=== PATIENT | female | born 1990 | race African-American/Black ===

== ENCOUNTER 2017-01-04 22:46 | Observation (INO) | payer OTHER ==
[~2017-01-04] VITALS: Ht 162.6 cm; Wt 102.5 kg
[2017-01-04] MEDS ORDERED: LACTATED RINGERS 1,000 ML IV SCH (23:07)
[2017-01-04] MEDS ORDERED: PREN-88 PO (23:11)
[2017-01-04] MEDS ORDERED: IRON-1 PO (23:12)
[2017-01-04 23:28] LABS: CLARITY URINE CLEAR (CLEAR); COLOR URINE YELLOW (YELLOW); GLUCOSE URINE NEGATIVE (NEGATIVE); KETONES URINE NEGATIVE (NEGATIVE); LEUKOCYTE ESTERASE URINE TRACE (NEGATIVE); NITRITE URINE NEGATIVE (NEGATIVE); OCCULT BLOOD URINE NEGATIVE (NEGATIVE); PH URINE 7.5 (4.5-8.0); PROTEIN URINE NEGATIVE (NEGATIVE); SPECIFIC GRAVITY URINE 1.023 (1.005-1.030)
== END 2017-01-05 00:35 | disposition home or self-care (01) ==
LOC: L&D 22:46
PROVIDERS: ADMIT Obstetrics & Gynecology; ATTEND Obstetrics & Gynecology
DX: Z34.90 Encounter for supervision of normal pregnancy, unspecified, unspecified trimester (principal); Z3A.00 Weeks of gestation of pregnancy not specified
CPT/HCPCS: 81001; 96360; 99281; G0378; J7120

== ENCOUNTER 2017-01-14 22:42 | Observation (INO) | payer OTHER ==
[~2017-01-14] VITALS: Ht 160 cm; Wt 104.3 kg
[~2017-01-14 22:42] MED LIST: IRON-1 PO; PREN-88 PO
[2017-01-14] MEDS: TERBUTALINE SULFATE 1MG/ML VIAL SUBCUT PRN (23:30)
[2017-01-14] MEDS ORDERED: LACTATED RINGERS 1,000 ML IV ONE (23:30)
[2017-01-15] MEDS: TERBUTALINE SULFATE 1MG/ML VIAL SUBCUT PRN (00:14)
[2017-01-15] MEDS ORDERED: DEXT 5%/LR + PITOCIN 20UNITS/L 1,000 ML IV SCH (00:31)
[2017-01-15 00:33] LABS: *AMPHETAMINES SCREEN URINE NEGATIVE (NEGATIVE); *BARBITURATES SCREEN URINE NEGATIVE (NEGATIVE); *BENZODIAZEPINES SCREEN URINE NEGATIVE (NEGATIVE); *COCAINE SCREEN URINE NEGATIVE (NEGATIVE); CANNABINOID URINE SCREEN NEGATIVE (NEGATIVE); METHADONE URINE SCREEN NEGATIVE (NEGATIVE); OPIATES URINE SCREEN NEGATIVE (NEGATIVE); PHENCYCLIDINE URINE SCREEN NEGATIVE (NEGATIVE)
[2017-01-15 00:43] LABS: CLARITY URINE CLEAR (CLEAR); COLOR URINE YELLOW (YELLOW); GLUCOSE URINE NEGATIVE (NEGATIVE); KETONES URINE NEGATIVE (NEGATIVE); LEUKOCYTE ESTERASE URINE NEGATIVE (NEGATIVE); NITRITE URINE NEGATIVE (NEGATIVE); OCCULT BLOOD URINE NEGATIVE (NEGATIVE); PROTEIN URINE NEGATIVE (NEGATIVE); SPECIFIC GRAVITY URINE 1.016 (1.005-1.030)
[2017-01-15] MEDS ORDERED: MAGNESIUM 20 G PREMIX (L & D) 500 ML IV SCH (00:45)
[2017-01-15] MEDS ORDERED: METHYLERGONOVINE MALEATE 0.2 MG/ML IM PRN (00:45)
[2017-01-15] MEDS ORDERED: NALOXONE HCL 0.4 MG/ML 1ML VIAL IM PRN (00:45)
[2017-01-15] MEDS ORDERED: CARBOPROST TROMETHAMINE 250 MCG/ML AMPUL IM PRN (00:45)
[2017-01-15] MEDS ORDERED: MAGNESIUM 4 G PREMIX 100 ML IV ONE (00:45)
[2017-01-15 01:21] LABS: BASOPHILS % 0.5 % (0.0-2.0); EOSINOPHILS % 1.9 % (0.0-5.0); HEMOGLOBIN. 11.5 g/dL (12.0-16.0); LYMPHOCYTES % 22.9 % (20.0-50.0); MEAN CORPUSCULAR HEMOGLOBIN 30.5 pg (28.0-32.0); MEAN CORPUSCULAR VOLUME 92.7 fL (81.0-99.0); MONOCYTES % 8.3 % (2.0-8.0); NEUTROPHILS % 66.4 % (40.0-76.0); PLATELET 130 x1000/uL (130-400); RED BLOOD CELL COUNT 3.78 mill/uL (4.2-5.4); RED CELL DISTRIBUTION WIDTH 12.9 % (11.6-14.6)
[2017-01-15 01:31] LABS: PARTIAL THROMBOPLASTIN TIME 26.9 sec (24.0-34.0); PROTHROMBIN TIME 9.9 sec
[2017-01-15] MEDS ORDERED: LACTATED RINGERS 1,000 ML IV SCH (01:45)
[2017-01-15] MEDS ORDERED: FENTANYL CITRATE/PF 50MCG/ML 2ML VIAL ONE (05:34)
[2017-01-15] MEDS ORDERED: BUPIVACAINE HCL/PF 0.25% (2.5MG/ML) 10ML ONE (05:34)
[2017-01-15] MEDS ORDERED: BUPIVACAINE HCL/NS/PF EPIDURAL 100 ML EP ONE (05:34)
[2017-01-15] MEDS ORDERED: BUPIVACAINE HCL/NS/PF EPIDURAL 100 ML EP SCH (05:45)
[2017-01-15] MEDS ORDERED: BUTORPHANOL TARTRATE 2 MG/ML VIAL IV PRN (05:58)
[2017-01-15 06:11] VITALS: BP 120/78
[2017-01-15] MEDS ORDERED: TERBUTALINE SULFATE 1MG/ML VIAL SUBCUT NR (08:30)
[2017-01-15 12:41] LABS: RUBELLA IGG 11.4 IU/mL (4.99-10)
[2017-01-15 12:42] LABS: HEPATITIS B SURFACE ANTIGEN NEGATIVE
== END 2017-01-15 09:30 | disposition left against medical advice (07) ==
LOC: L&D 22:42
PROVIDERS: ADMIT Obstetrics & Gynecology; ATTEND Obstetrics & Gynecology
DX: O26.893 Other specified pregnancy related conditions, third trimester (principal); R10.9 Unspecified abdominal pain; Z3A.36 36 weeks gestation of pregnancy
CPT/HCPCS: 36415; 80305; 81003; 85025; 85610; 85730; 86592; 86703; 86762; 86850; 86900; 86901; 87340; 96361; 96365; 96366; 96372; 96373; 96375; G0378; J0595; J3010; J3105; J3475; J3490; J7120; 59412; 96360

== ENCOUNTER 2022-04-30 04:37 | Observation (INO) | payer MEDICAID, OTHER ==
[~2022-04-30] VITALS: Ht 160 cm; Wt 83.9 kg
[2022-04-30] MEDS ORDERED: PNV1TABL29 PO (05:51)
[2022-04-30 06:45] LABS: CLARITY URINE CLOUDY (CLEAR); COLOR URINE YELLOW (YELLOW); KETONES URINE NEGATIVE (NEGATIVE); LEUKOCYTE ESTERASE URINE 2+ (NEGATIVE); NITRITE URINE NEGATIVE (NEGATIVE); OCCULT BLOOD URINE NEGATIVE (NEGATIVE); PH URINE 6.5 (4.5-8.0); PROTEIN URINE NEGATIVE (NEGATIVE); SPECIFIC GRAVITY URINE 1.015 (1.005-1.030); UROBILINOGEN URINE 0.2 E.U./dL (0.2-1.0)
== END 2022-04-30 08:25 | disposition home or self-care (01) ==
LOC: 8 EST LDRP 04:37
PROVIDERS: ADMIT Obstetrics & Gynecology; ATTEND Obstetrics & Gynecology
DX: O26.892 Other specified pregnancy related conditions, second trimester (principal); R10.9 Unspecified abdominal pain; O62.9 Abnormality of forces of labor, unspecified; Z3A.22 22 weeks gestation of pregnancy
CPT/HCPCS: 59025; 76805; 81003; G0378; 99281

== ENCOUNTER 2022-06-21 20:28 | Observation (INO) | payer MEDICAID, OTHER ==
[~2022-06-21] VITALS: Ht 162.6 cm; Wt 92.5 kg
[~2022-06-21 20:28] MED LIST changes: +PNV1TABL29 PO
[2022-06-21] MEDS ORDERED: LACTATED RINGERS 1,000 ML IV ONE (21:30)
[2022-06-21] MEDS ORDERED: LACTATED RINGERS 1,000 ML IV SCH (21:30)
[2022-06-21] MEDS ORDERED: DEXT 5%/LACTATED RINGERS 1,000 ML IV ONE (22:00)
[2022-06-21 22:44] LABS: CLARITY URINE CLEAR (CLEAR); COLOR URINE YELLOW (YELLOW); KETONES URINE NEGATIVE (NEGATIVE); LEUKOCYTE ESTERASE URINE TRACE (NEGATIVE); NITRITE URINE NEGATIVE (NEGATIVE); OCCULT BLOOD URINE NEGATIVE (NEGATIVE); PH URINE 6.5 (4.5-8.0); PROTEIN URINE NEGATIVE (NEGATIVE); SPECIFIC GRAVITY URINE 1.014 (1.005-1.030); UROBILINOGEN URINE 0.2 E.U./dL (0.2-1.0)
[2022-06-21] MEDS ORDERED: ACETAMINOPHEN 325MG TABLET PO NR (23:18)
== END 2022-06-21 23:59 | disposition home or self-care (01) ==
LOC: 8 EST LDRP 20:28
PROVIDERS: ADMIT Obstetrics & Gynecology; ATTEND Obstetrics & Gynecology
DX: O99.891 Other specified diseases and conditions complicating pregnancy (principal); M54.9 Dorsalgia, unspecified; R10.30 Lower abdominal pain, unspecified; Z3A.29 29 weeks gestation of pregnancy
CPT/HCPCS: 59025; 81003; 82731; G0378

== ENCOUNTER 2022-07-12 22:03 | Observation (INO) | payer MEDICAID ==
[~2022-07-12] VITALS: Ht 165.1 cm; Wt 98.9 kg
[2022-07-12] MEDS ORDERED: LACTATED RINGERS 500ML 500 ML IV NR (23:15)
[2022-07-12] MEDS ORDERED: TERBUTALINE SULFATE 1MG/ML VIAL SUBCUT PRN (23:15)
[2022-07-12] MEDS ORDERED: BETAMETHASONE ACET/BETAMET 30 MG/5 ML VIAL IM SCH (23:45)
[2022-07-12 23:57] LABS: CLARITY URINE CLEAR (CLEAR); COLOR URINE YELLOW (YELLOW); KETONES URINE TRACE (NEGATIVE); LEUKOCYTE ESTERASE URINE 1+ (NEGATIVE); NITRITE URINE NEGATIVE (NEGATIVE); OCCULT BLOOD URINE NEGATIVE (NEGATIVE); PROTEIN URINE TRACE (NEGATIVE); SPECIFIC GRAVITY URINE 1.026 (1.005-1.030)
[2022-07-13] MEDS ORDERED: LACTATED RINGERS 500ML 500 ML IV SCH (00:45)
[2022-07-13] MEDS ORDERED: CEFAZOLIN 2,000 MG in DEXT 5% WATER 100 ML IV NR (02:15)
[2022-07-13] MEDS ORDERED: LACTATED RINGERS 1,000 ML IV SCH (03:00)
== END 2022-07-13 03:35 | disposition home or self-care (01) ==
LOC: 8 EST LDRP 22:03
PROVIDERS: ADMIT Obstetrics & Gynecology; ATTEND Obstetrics & Gynecology
DX: O26.893 Other specified pregnancy related conditions, third trimester (principal); R10.30 Lower abdominal pain, unspecified; R10.2 Pelvic and perineal pain; O62.9 Abnormality of forces of labor, unspecified; O46.93 Antepartum hemorrhage, unspecified, third trimester; Z3A.32 32 weeks gestation of pregnancy
CPT/HCPCS: 59025; 76805; 76818; 81003; 82731; 96361; 96365; 96372; G0378; J0690; J0702; J3105; J7060; 96360; 99281

== ENCOUNTER 2022-07-13 22:28 | Observation (INO) | payer OTHER, MEDICAID ==
[~2022-07-13] VITALS: Ht 165.1 cm; Wt 98.9 kg
[2022-07-13] MEDS ORDERED: BETAMETHASONE ACET/BETAMET 30 MG/5 ML VIAL IM ONE (23:00)
== END 2022-07-13 23:15 | disposition home or self-care (01) ==
LOC: 8 EST LDRP 22:28 → INTOOBSV 22:28
PROVIDERS: ADMIT Obstetrics & Gynecology; ATTEND Obstetrics & Gynecology
DX: O62.9 Abnormality of forces of labor, unspecified (principal); Z3A.32 32 weeks gestation of pregnancy
CPT/HCPCS: 59025; 96372; G0378; J0702; 99281

== ENCOUNTER 2022-07-23 15:39 | Observation (INO) | payer MEDICAID ==
[2022-07-23] MEDS ORDERED: LACTATED RINGERS 1,000 ML IV NR (16:30)
[2022-07-23] MEDS ORDERED: LACTATED RINGERS 1,000 ML IV SCH (17:00)
[2022-07-23 17:12] LABS: CLARITY URINE CLEAR (CLEAR); COLOR URINE YELLOW (YELLOW); KETONES URINE NEGATIVE (NEGATIVE); LEUKOCYTE ESTERASE URINE NEGATIVE (NEGATIVE); NITRITE URINE NEGATIVE (NEGATIVE); OCCULT BLOOD URINE NEGATIVE (NEGATIVE); PROTEIN URINE NEGATIVE (NEGATIVE)
[2022-07-23 17:34] LABS: *AMPHETAMINES SCREEN URINE NEGATIVE (NEGATIVE); *BARBITURATES SCREEN URINE NEGATIVE (NEGATIVE); *BENZODIAZEPINES SCREEN URINE NEGATIVE (NEGATIVE); *COCAINE SCREEN URINE NEGATIVE (NEGATIVE); CANNABINOID URINE SCREEN NEGATIVE (NEGATIVE); METHADONE URINE SCREEN NEGATIVE (NEGATIVE); OPIATES URINE SCREEN NEGATIVE (NEGATIVE); PHENCYCLIDINE URINE SCREEN NEGATIVE (NEGATIVE)
[2022-07-23] MEDS ORDERED: BUTORPHANOL TARTRATE 2 MG/ML VIAL IV NR (20:30)
[2022-07-23 20:45] VITALS: BP 109/55
[2022-07-23] MEDS: TERBUTALINE SULFATE 1MG/ML VIAL SUBCUT PRN ×3 (22:07→23:31)
== END 2022-07-24 00:50 | disposition home or self-care (01) ==
LOC: 8 EST LDRP 15:39
PROVIDERS: ADMIT Obstetrics & Gynecology; ATTEND Obstetrics & Gynecology
DX: O62.9 Abnormality of forces of labor, unspecified (principal); Z3A.34 34 weeks gestation of pregnancy; Z79.899 Other long term (current) drug therapy
CPT/HCPCS: 59025; 76815; 76818; 80305; 81003; 82731; 96361; 96372; 96374; G0378; J0595; J3105; 96360; 99281; J7120

== ENCOUNTER 2022-08-06 20:27 | Inpatient (IN) | payer MEDICAID ==
[~2022-08-06] VITALS: Ht 162.6 cm; Wt 101.2 kg
[~2022-08-06 20:27] MED LIST changes: -PREN-88 PO
[2022-08-06] MEDS ORDERED: PNV1TABL50 MT (21:06)
[2022-08-07] MEDS: LACTATED RINGERS 1,000 ML IV SCH ×2 (01:01→03:48)
[2022-08-07 01:23] LABS: BASOPHILS % 0.3 % (0.0-2.0); EOSINOPHILS % 1.3 % (0.0-5.0); HEMATOCRIT. 38.9 % (36.0-48.0); HEMOGLOBIN. 12.8 g/dL (12.0-16.0); LYMPHOCYTES % 21.9 % (20.0-50.0); MEAN CORPUSCULAR HEMOGLOBIN 31.5 pg (28.0-32.0); MEAN CORPUSCULAR VOLUME 95.9 fL (81.0-99.0); MEAN PLATELET VOLUME 12.8 fl (7.4-10.4); MONOCYTES % 7.9 % (2.0-8.0); NEUTROPHILS % 68.6 % (40.0-76.0); PLATELET 139 x1000/uL (130-400); RED BLOOD CELL COUNT 4.05 mill/uL (4.2-5.4); RED CELL DISTRIBUTION WIDTH 13.1 % (11.6-14.6)
[2022-08-07 01:45] LABS: CLARITY URINE CLEAR (CLEAR); COLOR URINE YELLOW (YELLOW); KETONES URINE TRACE (NEGATIVE); LEUKOCYTE ESTERASE URINE TRACE (NEGATIVE); NITRITE URINE NEGATIVE (NEGATIVE); OCCULT BLOOD URINE NEGATIVE (NEGATIVE); PROTEIN URINE NEGATIVE (NEGATIVE); SPECIFIC GRAVITY URINE 1.025 (1.005-1.030)
[2022-08-07 01:47] LABS: INR 0.9; PARTIAL THROMBOPLASTIN TIME 27.3 sec (23.4-31.0)
[2022-08-07] MEDS: OXYTOCIN 30 UNITS/500ML NS PMX 500 ML IV SCH ×2 (01:59→08:53)
[2022-08-07] MEDS ORDERED: ROPIVACAINE HCL/PF EPIDURAL 200 ML EPI SCH (02:00)
[2022-08-07 02:07] LABS: *AMPHETAMINES SCREEN URINE NEGATIVE (NEGATIVE); *BARBITURATES SCREEN URINE NEGATIVE (NEGATIVE); *BENZODIAZEPINES SCREEN URINE NEGATIVE (NEGATIVE); *COCAINE SCREEN URINE NEGATIVE (NEGATIVE); CANNABINOID URINE SCREEN NEGATIVE (NEGATIVE); METHADONE URINE SCREEN NEGATIVE (NEGATIVE); OPIATES URINE SCREEN NEGATIVE (NEGATIVE); PHENCYCLIDINE URINE SCREEN NEGATIVE (NEGATIVE)
[2022-08-07 02:26] LABS: HEPATITIS B SURFACE ANTIGEN NEGATIVE
[2022-08-07] MEDS ORDERED: IBUPROFEN 400MG TABLET PO PRN (06:15)
[2022-08-07 08:40] VITALS: BP 117/49
[2022-08-07] MEDS: PRENATAL VIT/FE FUMARATE/FA TABLET PO SCH (08:44)
[2022-08-07] MEDS: IBUPROFEN 800MG TABLET PO PRN ×2 (08:44→21:26)
[2022-08-07 09:10] VITALS: BP 118/64
[2022-08-07 09:40] VITALS: BP 120/70
[2022-08-07 16:00] VITALS: BP 123/68
[2022-08-07 20:00] VITALS: BP 117/69
[2022-08-08 05:45] VITALS: BP 124/68
[2022-08-08] MEDS: IBUPROFEN 800MG TABLET PO PRN (05:52)
[2022-08-08] MEDS ORDERED: FERROUS SULFATE 325MG TABLET PO SCH (07:30)
[2022-08-08 07:50] VITALS: BP 112/54
[2022-08-08 08:48] LABS: BASOPHILS % 0.5 % (0.0-2.0); EOSINOPHILS % 3.1 % (0.0-5.0); HEMATOCRIT. 34.5 % (36.0-48.0); HEMOGLOBIN. 11.6 g/dL (12.0-16.0); LYMPHOCYTES % 27.6 % (20.0-50.0); MEAN CORPUSCULAR VOLUME 95.1 fL (81.0-99.0); MEAN PLATELET VOLUME 12.7 fl (7.4-10.4); MONOCYTES % 10.1 % (2.0-8.0); NEUTROPHILS % 58.7 % (40.0-76.0); PLATELET 123 x1000/uL (130-400); RED BLOOD CELL COUNT 3.63 mill/uL (4.2-5.4); RED CELL DISTRIBUTION WIDTH 13.1 % (11.6-14.6)
[2022-08-08] MEDS: PRENATAL VIT/FE FUMARATE/FA TABLET PO SCH (09:10)
== END 2022-08-08 10:05 | disposition home or self-care (01) | DRG 560 ==
LOC: 8 EST LDRP 20:27 → OBSVTOIN 20:27 → INTOOBSV 20:27 → 8EST 08-07 07:59
PROVIDERS: ADMIT Obstetrics & Gynecology; ATTEND Obstetrics & Gynecology
PROC: 10E0XZZ Delivery of Products of Conception, External Approach (ICD-10-PCS; principal; 2022-08-07)
PROC: 3E0R3BZ Introduction of Anesthetic Agent into Spinal Canal, Percutaneous Approach (ICD-10-PCS; 2022-08-07)
PROC: 00HU33Z Insertion of Infusion Device into Spinal Canal, Percutaneous Approach (ICD-10-PCS; 2022-08-07)
DX: O60.14X0 Preterm labor third trimester with preterm delivery third trimester, not applicable or unspecified (principal); Z37.0 Single live birth; D69.6 Thrombocytopenia, unspecified; D62 Acute posthemorrhagic anemia; Z20.822 Contact with and (suspected) exposure to COVID-19; O99.12 Other diseases of the blood and blood-forming organs and certain disorders involving the immune mechanism complicating childbirth; O69.81X0 Labor and delivery complicated by cord around neck, without compression, not applicable or unspecified; Z3A.36 36 weeks gestation of pregnancy; O99.02 Anemia complicating childbirth; Z82.49 Family history of ischemic heart disease and other diseases of the circulatory system
CPT/HCPCS: 36415; 76805; 76818; 80305; 81003; 85025; 85384; 86592; 86703; 86762; 86850; 86900; 87340; 87426; 99281; G0378; J2795; A4315; J2590

== ENCOUNTER 2025-07-20 10:08 | Emergency (ER) | payer MEDICAID ==
[~2025-07-20] VITALS: Ht 160 cm; Wt 70.0 kg
[~2025-07-20 10:08] MED LIST changes: +PNV1TABL50 MT
[2025-07-20 10:12] VITALS: O2SAT 100
[2025-07-20] MEDS: ACETAMINOPHEN 325MG TABLET PO ONE (11:17)
[2025-07-20 11:26] LABS: BASOPHILS % 0.7 % (0.0-2.0); EOSINOPHILS % 0.1 % (0.0-5.0); HEMATOCRIT. 41.1 % (36.0-48.0); HEMOGLOBIN. 13.7 g/dL (12.0-16.0); LYMPHOCYTES % 7.9 % (20.0-50.0); MEAN PLATELET VOLUME 12.5 fl (7.4-10.4); MONOCYTES % 7.6 % (2.0-8.0); NEUTROPHILS % 83.7 % (40.0-76.0); PLATELET 158 x1000/uL (130-400); RED BLOOD CELL COUNT 4.41 mill/uL (4.2-5.4); RED CELL DISTRIBUTION WIDTH 13.1 % (11.6-14.6)
[2025-07-20 11:32] LABS: CREATININE 0.8 mg/dL (0.6-1.0); UREA NITROGEN BLOOD < 5 mg/dL (9-23)
[2025-07-20 11:34] LABS: TROPONIN I HIGH SENSITIVITY < 4 ng/L (3.0-34)
[2025-07-20] MEDS: POTASSIUM CHLORIDE 20MEQ TABLET SR PO ONE (12:09)
[2025-07-20 12:16] LABS: INFLUENZA TYPE A Presumptive Negative (Pres. Neg.)
[2025-07-20 12:17] LABS: INFLUENZA TYPE B Presumptive Negative (Pres. Neg.)
[2025-07-20 12:18] LABS: RESPIRATORY SYNCYTIAL VIRUS Not Detected (Not Detectd)
[2025-07-20 12:43] VITALS: BP 122/64; PULSE 90; RESP 14; TEMP 38.5; O2SAT 97
== END 2025-07-20 12:44 | disposition home or self-care (01) ==
LOC: ER 10:08
DX: B34.9 Viral infection, unspecified (principal); E87.6 Hypokalemia; Z79.899 Other long term (current) drug therapy; Z20.822 Contact with and (suspected) exposure to COVID-19
CPT/HCPCS: 36415; 71045; 80048; 84484; 85025; 87420; 87426; 87804; 93005; 99285